=== PATIENT | male | born 1990 | race Caucasian/White ===

== ENCOUNTER 2016-08-22 23:37 | Emergency (ER) | payer SELFPAY ==
--- NOTE | ~2016-08-22 | ER ---
PATIENT'S NAME: [facility] AGE: 26 Y [address] ROOM: [place] [id number] LOCATION: [facility] ADMIT DATE: 08/22/2016 ER/Outpatient Report DISCHARGE DATE: 08/23/2016 FAMILY PHYSICIAN: PHYSICIAN, NO ATTENDING PHYSICIAN: Dejan Calloway Admission date and time documented in the medical record. I saw the patient at 2355 hours. CHIEF COMPLAINT: Foreign body, left eye. HISTORY OF PRESENT ILLNESS: This patient is a 26-year-old male who about 2 hours prior to admission in the emergency room was working underneath a car, got a foreign body into his left eye. He still feels like it is in there. Presented to the emergency room for evaluation. No other injuries. No other complaints. HOME MEDICATIONS: None. ALLERGIES: NONE. SOCIAL HISTORY: The patient smokes 1-2 packs cigarettes per day. Occasional intake of alcohol. SIGNIFICANT PAST MEDICAL HISTORY: Negative except for tobacco abuse. OPERATIONS: Appendectomy. REVIEW OF SYSTEMS: All systems reviewed by me are negative with the exception of those discussed in the history of present illness. PHYSICAL EXAMINATION: VITAL SIGNS: Temperature 96.4, pulse 87, respiratory rate 20, blood pressure 102/63, and O2 saturation on room air is 95%. EYES: Extraocular muscles intact. PERRL. Left conjunctiva is little bit injected. I did not find any foreign body under the upper lid or in the lower lid. I did not visually see any foreign body in the cornea. He does have a small abrasion about 7 o'clock after fluorescein stain of the left cornea. PATIENT'S NAME: [facility] AGE: 26 Y [address] ROOM: [place] [address] LOCATION: [facility] ADMIT DATE: 08/22/2016 ER/Outpatient Report DISCHARGE DATE: 08/23/2016 FAMILY PHYSICIAN: PHYSICIAN, NO ATTENDING PHYSICIAN: Dejan Calloway IMPRESSION: Minimal left corneal abrasion with left eye discomfort. PLAN: Ophthaine anesthetic drops were placed in the left eye. Erythromycin ophthalmic ointment was placed in the left eye. The patient discharged home. Observation. Activity as tolerated. Warm moist packs to the left eye intermittently as needed. Erythromycin ophthalmic ointment, apply to left eye 4 times a day for 5 to 7 days. Follow up with personal physician or eye physician if needed. Discussion ensued with the patient concerning my findings and recommendations, he understands. MD ADITYA JUAREZ/goldiel /[id number] d: 08/23/160 t: 08/23/16 1819, OUTPATIENT REPORT
== END 2016-08-23 00:18 | disposition disaster alternative care site (69) ==
LOC: GACC 23:37
DX: S05.02XA Injury of conjunctiva and corneal abrasion without foreign body, left eye, initial encounter (principal); F17.210 Nicotine dependence, cigarettes, uncomplicated; Z90.49 Acquired absence of other specified parts of digestive tract; W45.8XXA Other foreign body or object entering through skin, initial encounter; Y93.89 Activity, other specified